=== PATIENT | female | born 1970 | race African-American/Black ===

== ENCOUNTER 2019-03-17 19:47 | Emergency (ER) | payer SELFPAY ==
[~2019-03-17] VITALS: Ht 160 cm; Wt 111.1 kg
[2019-03-17 19:57] VITALS: BP 164/113
[2019-03-17] MEDS ORDERED: KETOROLAC TROMETHAMINE INJ 60 MG/2 ML VIAL IM ONE (20:48)
[2019-03-17] MEDS ORDERED: METOCLOPRAMIDE HCL 10 MG TABLET ONE (20:48)
[2019-03-17] MEDS ORDERED: diphenhydrAMINE HCL ELIX 25 MG/10 ML UDC ONE (20:48)
[2019-03-17] MEDS ORDERED: KETOROLAC TROMETHAMINE INJ 30 MG/ML VIAL IM ONE (21:00)
[2019-03-17] MEDS ORDERED: METOCLOPRAMIDE HCL 10 MG TABLET PO ONE (21:00)
[2019-03-17] MEDS ORDERED: DIPHENHYDRAMINE HCL 12.5 MG/5 ML UDC PO ONE (21:00)
== END 2019-03-17 21:41 | disposition home or self-care (01) ==
LOC: ER 19:51
DX: S13.8XXA Sprain of joints and ligaments of other parts of neck, initial encounter (principal); I10 Essential (primary) hypertension; G43.909 Migraine, unspecified, not intractable, without status migrainosus; J32.9 Chronic sinusitis, unspecified; Z98.890 Other specified postprocedural states; Z90.710 Acquired absence of both cervix and uterus; X58.XXXA Exposure to other specified factors, initial encounter; Y93.89 Activity, other specified; Y92.89 Other specified places as the place of occurrence of the external cause; Y99.8 Other external cause status
CPT/HCPCS: 96372; 99283; J1885; J8597; Q0163

== ENCOUNTER 2019-07-01 17:36 | Emergency (ER) | payer SELFPAY ==
[~2019-07-01] VITALS: Ht 160 cm; Wt 111.1 kg
--- NOTE | 2019-07-01 18:15 | NUR ---
PATIENT C/O FEVER, COUGH, AND CHILLS X3 DAYS. PATIENT A/OX4, BREATHING EVEN AND UNLABORED, NO SOB NOTED, NEEDS ATTENDED, KEPT COMFORTABLE.
--- NOTE | 2019-07-01 18:18 | NUR ---
AT BEDSIDE FOR EVAL.
[2019-07-01] MEDS ORDERED: predniSONE 20 MG TABLET ONE (18:23)
--- NOTE | 2019-07-01 18:28 | NUR ---
RAPID INFLUENZA SWAB OBTAINED.
[2019-07-01] MEDS ORDERED: ALBUTEROL FS 2.5 MG/3 ML VIAL.NEB ONE (18:29)
[2019-07-01] MEDS ORDERED: IPRATROPIUM NEB FS 0.5 MG/2.5 ML AMPUL.NEB ONE (18:29)
[2019-07-01] MEDS ORDERED: ALBUTEROL FS 2.5 MG/3 ML VIAL.NEB CONTNEB ONE (18:30)
[2019-07-01] MEDS ORDERED: predniSONE 20 MG TABLET PO ONE (18:30)
[2019-07-01] MEDS ORDERED: IPRATROPIUM NEB FS 0.5 MG/2.5 ML AMPUL.NEB NEB ONE (18:30)
--- NOTE | 2019-07-01 18:30 | NUR ---
PT RECEIVING BREATHING TX.
--- NOTE | 2019-07-01 20:12 | NUR ---
Patient discharged to home in stable condition. Written and verbal after care instructions given. Patient verbalizes understanding of instruction.
[2019-07-01 20:14] VITALS: BP 136/78
== END 2019-07-01 20:15 | disposition home or self-care (01) ==
LOC: ER 17:41
DX: J40 Bronchitis, not specified as acute or chronic (principal); Z90.710 Acquired absence of both cervix and uterus; Z98.890 Other specified postprocedural states
CPT/HCPCS: 71045; 87804 ×2; 94640; 99284; J7512